=== PATIENT | female | born 1965 | race American Indian/Alaskan Native ===

== ENCOUNTER 2017-07-02 07:29 | Outpatient (CLI) | payer OTHER ==
--- NOTE | 2017-07-02 12:42 | Fluoroscopy Report ---
UPPER GI SERIES WITH AIR-CONTRAST History: Gastroesophageal reflux disease without esophagitis. Findings: No comparison at this facility. [employer] film of the abdomen demonstrates a normal appearance of the lap band device in the left upper quadrant with a normal phi angle. Deglutition is normal. The esophagus is normal caliber and mucosal pattern throughout. There is easy passage of the contrast agent through the lap band device. The gastric pouch appears normal size and mucosal pattern. There is normal filling of the stomach and visualized proximal bowel loops. No gastroesophageal reflux was witnessed during this exam. Impression: No abnormality identified. The lap band device appears in appropriate position.
== END 2017-07-02 07:30 | disposition home or self-care (01) ==
LOC: FLUORO 07:29
PROVIDERS: ATTEND Physician Assistant Medical
DX: Z13.810 Encounter for screening for upper gastrointestinal disorder (principal); K21.9 Gastro-esophageal reflux disease without esophagitis
CPT/HCPCS: 74246

== ENCOUNTER → 2017-11-21 | Outpatient (CLI) | payer OTHER | END | disposition home or self-care (01) | LOC: SLR 11:00 | PROVIDERS: ATTEND Otolaryngology | DX: G47.33 Obstructive sleep apnea (adult) (pediatric) (principal); R40.0 Somnolence; R06.83 Snoring; I10 Essential (primary) hypertension; Z90.89 Acquired absence of other organs | CPT/HCPCS: 95810 ==